=== PATIENT | female | born 1945 | race Caucasian/White ===

== ENCOUNTER 2017-04-04 16:55 | Emergency (ER) | payer OTHER ==
[2017-04-04 17:00] VITALS: RESP 16
--- NOTE | 2017-04-04 17:12 | CPEKG ---
Heart Rate: 70 RR Interval: 857 P-R Interval: 188 QRSD Interval: 106 QT Interval: 396 QTC Interval: 428 P Kunia: 62 QRS Kunia: -49 T Wave Kunia: 69 EKG Severity - ABNORMAL ECG - EKG Impression: SINUS RHYTHM EKG Impression: INCOMPLETE RBBB AND LAFB EKG Impression: LEFT VENTRICULAR HYPERTROPHY EKG Impression: ANTERIOR Q WAVES, POSSIBLY DUE TO LVH Electronically Signed By: Ese Webb 04-Apr-2017 20:20:58
--- NOTE | 2017-04-04 17:14 | EDPHY ---
H & P Time Seen by Provider: 04/04/17 17:12 HPI/ROS: CHIEF COMPLAINT: Abnormal EKG. HISTORY OF PRESENT ILLNESS: The patient is a 71-year-old female sent here by her PCP for an abnormal EKG today. The patient had a strange sensation in her left chest yesterday. She describes a feeling of "a hose running through her chest". During this time she feels the need to take deep breaths. She has experienced similar episodes of this in the past and states it lasts for less than a minute. She has been evaluated for this in the past and worn a monitor, had multiple EKGs, and treadmill test. All cardiac tests were normal. The patient additionally noticed some mild right sided chest pain yesterday. The chest pain was mild and lasted less than 10 minutes. She continued doing her usual activities while she had the discomfort and then it resolved spontaneously. She denies shortness of breath. She notes increased swelling to her lower extremities and states she is on her feet a lot. Cardiac risk factors positive for hyperlipidemia. Nonsmoker; no family history ; no hypertension, diabetes. REVIEW OF SYSTEMS: A comprehensive 10 point review of systems is otherwise negative aside from elements mentioned in the history of present illness. Past Medical/Surgical History: . Social History: Hypothyroid Smoking Status: Never smoked Physical Exam: General Appearance: Alert, pleasant Eyes: Pupils equal and round, no conjunctival pallor or injection ENT, Mouth: Mucous membranes moist Neck: Normal inspection Respiratory: Lungs are clear to auscultation Cardiovascular: Regular rate and rhythm Gastrointestinal: Abdomen is soft and non-tender Neurological: A&O, nonfocal, normal gait Skin: Warm and dry, no rash Extremities: Nontender, no pedal edema Psychiatric: Mood and affect normal Constitutional: Initial Vital Signs Temperature (C) 36.5 C 04/04/17 16:57 Heart Rate 72 04/04/17 16:57 Respiratory Rate 16 04/04/17 16:57 Blood Pressure 154/64 H 04/04/17 16:57 O2 Sat (%) 96 04/04/17 16:57 O2 Delivery Mode Room Air Allergies/Adverse Reactions: doxycycline Allergy (Intermediate, Verified 08/03/13 18:59) Itching Sulfa (Sulfonamide Antibiotics) Allergy (Intermediate, Verified 08/03/13 18:59) Hives Home Medications: Medication Instructions Recorded Cholecalciferol (Vitamin D3) 50,000 unit PO 08/03/13 [D3-50] Cyanocobalamin (Vitamin B-12) 1,000 mcg PO 08/03/13 [B-12] Levothyroxine [Synthroid 100 mcg 100 mcg PO DAILY06 08/03/13 (RX)] Meloxicam [Mobic 15 mg] 0 mg PO HS 08/03/13 Multivitamin [Multi Vitamin Daily] 1 each PO 08/03/13 [place]-3 Fatty Acids/Fish Oil [Fish 1 each PO 08/03/13 Oil 1,000 mg Capsule] oxyCODONE/APAP 5/325 [Percocet 1 tab PO Q6 #10 tab 08/03/13 5/325] Medical Decision Making - Diagnostics EKG Interpretation: EKG interpreted by me reveals normal sinus rhythm, right bundle branch block, LVH. Imaging Results: Chest x-ray independently reviewed by me reveals no acute disease. Imaging: I viewed and interpreted images myself ED Course/Re-evaluation: The patient was sent here by her PCP for abnormal EKG today and chest pain yesterday. I reviewed the patient's EKG performed at the clinic today which shows normal sinus rhythm, rate 64, LVH. I think that the slight ST segment elevation in the anterior leads is related to LVH. I find no clinical indication of acute coronary syndrome. Also, given the lack of reciprocal changes, this is probably her baseline EKG. There are no old EKGs for comparison. EKG done in the ED shows normal sinus rhythm, RBBB, LVH. I spoke with the patient about possible high blood pressure. She states that her blood pressure is usually slightly high when she is in her physician's office, though the elevated blood pressures often attributed to having run up the stairs to get to her appointment. I suspect that she has underlying hypertension and may need antihypertensive medication. The patient was instructed to take and record her blood pressure twice daily and take the results of these readings to her primary care physician. Chest x-ray is normal. Labs are unremarkable. The patient remained asymptomatic throughout her emergency department stay. pvc monitor revealed normal sinus rhythm throughout. I suspect that the whooshing feeling that she is feeling in her chest is related to either PVCs or PACs. The very brief discomfort does not sound ischemic in nature. In addition I do not suspect acute pulmonary embolism in this patient and I feel that I can exclude this diagnosis based on normal vital signs, normal oxygen saturation and no risk factors for thromboembolic disease. Plan to discharge patient home. Return precautions given. Differential Diagnosis: Differential diagnosis includes though it is not limited to pneumonia, pneumothorax, pulmonary embolism, aortic dissection, pericarditis, acute coronary syndrome. - Data Points Laboratory Results: Laboratory Results 04/04/17 17:50 04/04/17 17:50 Departure - Departure Disposition: Home, Routine, Self-Care Clinical Impression: Chest pain Condition: Good Instructions: Chest Pain (ED) Additional Instructions: Please followup with your heart surgeon if you continue to have symptoms. Referrals: Shoshana Garcia MD [Primary Care Provider] - As per Instructions [facility] [Provider Group] - As per Instructions Report Scribed for: Ese Webb Report Scribed by: Courtney Chavez Date of Report: 04/04/17 Time of Report: 17:12 Physician Review and Approval Statement: 04/04/17 17:12 Portions of this note were transcribed by a medical clinic manager. I personally performed the history, physical exam, and medical decision-making; and confirmed the accuracy of the information in the transcribed note.
[2017-04-04 18:01] LABS: % IMMATURE GRANULYOCYTES 0.2 % (0.0-1.1); ABSOLUTE IMMATURE GRANULOCYTES 0.01 10^3/uL (0.00-0.10); ADD DIFF? NO; ADD MORPH? NO; ADD SCAN? NO; ATYPICAL LYMPHOCYTE FLAG 0 (0-99); FRAGMENT RBC FLAG 0 (0-99); HEMATOCRIT 39.7 % (38.0-47.0); HEMOGLOBIN 13.7 g/dL (12.6-16.3); LEFT SHIFT FLG 0 (0-99); LIPEMIA HEMOLYSIS FLAG 90 (0-99); MEAN CELL HEMOGLOBIN 30.1 pg (27.9-34.1); MEAN CELL HEMOGLOBIN CONCENTR. 34.5 g/dL (32.4-36.7); MEAN CELL VOLUME 87.3 fL (81.5-99.8); MEAN PLATELET VOLUME 9.2 fL (8.7-11.7); PLATELET CLUMPS FLAG 0 (0-99); PLATELET COUNT 253 10^3/uL (150-400); RED BLOOD CELL COUNT 4.55 10^6/uL (4.18-5.33); RED CELL DISTRIBUTION WIDTH 12.6 % (11.5-15.2)
[2017-04-04 18:14] LABS: ANION GAP 7 mEq/L (8-16); CALCIUM 9.7 mg/dL (8.5-10.4); CARBON DIOXIDE 28 mEq/l (22-31); CHLORIDE 104 mEq/L (97-110); CREATININE 0.8 mg/dL (0.6-1.0); GLOMERULAR FILTRATION RATE > 60; GLUCOSE 89 mg/dL (70-100); SODIUM 139 mEq/L (134-144)
[2017-04-04 18:28] LABS: TROPONIN I < 0.012 ng/mL (0-0.034)
[2017-04-04 18:58] VITALS: BP 162/71; PULSE 75; TEMP 97.9; O2SAT 99
== END 2017-04-04 18:56 | disposition home or self-care (01) ==
DX: R07.9 Chest pain, unspecified (principal)

== ENCOUNTER → 2018-09-10 | Outpatient (CLI) | payer OTHER | LOC: BHFA 14:45 | PROVIDERS: ATTEND Physician Assistant Medical | DX: R94.31 Abnormal electrocardiogram [ECG] [EKG] (principal); I77.9 Disorder of arteries and arterioles, unspecified; I20.8 Other forms of angina pectoris ==

== ENCOUNTER 2018-09-12 12:08 | Inpatient (IN) | payer OTHER ==
[2018-09-12] MEDS ORDERED: FAMOTIDINE 20 MG TAB PO ONE (12:10)
[2018-09-12] MEDS ORDERED: DIAZEPAM 5 MG TAB PO ONE (12:10)
[2018-09-12] MEDS ORDERED: ASPIRIN EC 325 MG TAB PO ONE (12:10)
[2018-09-12] MEDS ORDERED: diphenhydrAMINE 25 MG CAP PO ONE (12:10)
[2018-09-12] MEDS ORDERED: NS 1,000 ML IV ONE (12:10)
[2018-09-12] MEDS ORDERED: fentaNYL 100 MCG/2 ML INJ ONE (12:37)
[2018-09-12] MEDS ORDERED: LIDOCAINE 1% 300 MG/30 ML SDV ONE (12:37)
[2018-09-12] MEDS ORDERED: MIDAZOLAM 2 MG/2 ML VIAL ONE (12:37)
[2018-09-12] MEDS ORDERED: IOPAMIDOL (ISOVUE-370) 150 ML BTL IV ONE (12:40)
[2018-09-12 13:06] LABS: PLATELET COUNT 262 10^3/uL (150-400)
[2018-09-12 13:15] LABS: INR 1.02 (0.83-1.16); PROTIME(PATIENT) 13.6 SEC (12.0-15.0)
--- NOTE | 2018-09-12 13:57 | ECHO ---
[email or web address] [address] [address] Main: [phone] Fax: Transthoracic Echocardiogram Name: ANIKET CRUZ MR#: [id number] Study Date: 09/12/2018 Study Time: 12:58 PM Date of : 1945 Age: 73 year(s) Height: 162.6 cm (64 in.) Weight: 67.59 kg (149 lb.) BSA: 1.73 m2 Gender: Female Examination: Echo Indication: cath Image Quality: Adequate Contrast: Requested by: Diego Gomez BP: 161 mmHg/72 mmHg Heart Rate: Rhythm: Indication: cath Procedure Staff Advisory Services Associate: Abigail Montesinos [facility] Reading Physician: Diego Gomez MD Requesting Provider: Conclusions: Normal size left ventricle. Borderline concentric LV hypertrophy. Normal global systolic LV function. EF is 68 %. No regional wall motion abnormality. Diastolic function is indeterminate. Normal size right ventricle. The left atrium is mildly dilated. Mild mitral valve leaflet calcification is present. Mild mitral valve regurgitation is present. The aortic valve is tri-leaflet. There is no significant aortic valve regurgitation. The tricuspid valve is normal in appearance and function. Mild tricuspid regurgitation is present. The pulmonary artery pressure is normal. Mild pulmonic valve regurgitation is noted. Normal size ascending aorta measuring 3.3 cm. Trivial pericardial effusion. Measurements: Chambers Valvular Assessment AV/MV Valvular Assessment TV/PV Normal Normal Normal Name Value Range Name Value Range Name Value Range Ao Sara (2D): 2.7 cm (1.4 cm-2.6 AV Vmax: 1.19 m/s (1 m/s-1.7 TR Vmax: 2.19 mm/s ( - ) cm) m/s) TR PGmax: 19 mmHg ( - ) IVSd (2D): 1.1 cm (0.6 cm-1.1 AV maxP mmHg ( - ) syst. PAP: 24 mmHg ( - ) cm) AV meanP mmHg ( - ) PV Vmax: 0.81 m/s (0.6 m/s-0.9 LVDd (2D): 4.7 cm (3.9 cm-5.3 MARC (VTI): 2.3 cm ( - ) m/s) cm) MV E Vmax: 0.57 m/s ( - ) PV PGmax: 3 mmHg ( - ) Patient: ANIKET CRUZ Study Date: 09/12/2018 Page 1 of 2 12:58 PM LVDs (2D): 3.0 cm (2.1 cm-4 MV A Vmax: 0.78 m/s ( - ) cm) MV E/A: 0.73 ( - ) LVPWd (2D): 1.1 cm ( - ) MV PHT: 0.096 s ( - ) LVOTd 2.0 cm 2.0 cm mm MVA (PHT): 2.3 s ( - ) LVEF (BP): 68 % (>=55 %) RVDd(2D): 2.8 cm (1.9 cm-3.8 cmmm) Continued Measurements: Chambers Valvular Assessment AV/MV Valvular Assessment TV/PV Name Value Name Value Name Value LADs: 3.2 cm MV DecTime: 299 m/s CVP (est.): 5 mmHg LADs Lon.3 cm MV E' Septal: 0.06 m/s LA Area: 20.2 cm2 MV E/E' Septal: 9.60 LA Volume: 64 ml MV E/E' Lateral: 7.80 LA Volume Index: 37.0 ml/m2 RA Area: 14.1 cm2 Additional Vessels Name Value Ao Ascendin.3 cm Inferior Vena Cava: 1.6 cm Findings: Left Ventricle: Normal size left ventricle. Borderline concentric LV hypertrophy. Normal global systolic LV function. EF is 68 %. No regional wall motion abnormality. Diastolic function is indeterminate. Right Ventricle: Normal size right ventricle. Normal RV function. Left Atrium: The left atrium is mildly dilated. Right Atrium: The right atrium is normal in size. Mitral Valve: The mitral valve is normal in appearance and function. Mild mitral valve leaflet calcification is present. Mild mitral valve regurgitation is present. No mitral stenosis is present. Aortic Valve: The aortic valve is tri-leaflet. There is no significant aortic valve regurgitation. No aortic valve stenosis is present. Tricuspid Valve: The tricuspid valve is normal in appearance and function. Mild tricuspid regurgitation is present. The pulmonary artery pressure is normal. Right ventricular systolic pressure measures 24mmHg. Pulmonic Valve: The pulmonic valve is normal in appearance and function. Mild pulmonic valve regurgitation is noted. Aorta: The aorta is normal. Normal size aortic root measuring 2.7 cm. Normal size ascending aorta measuring 3.3 cm. IVC: The IVC is normal sized. Pericardium: Trivial pericardial effusion. There is a pleural effusion present. (No Signature Object) Patient: ANIKET CRUZ Study Date: 09/12/2018 Page 2 of 2 12:58 PM [id number]
--- NOTE | 2018-09-12 13:57 | PDHPUP ---
History & Physical Update H&P update statement: This history and physical update is based on an assessment of the patient which was completed after admission or registration (within 24 hours), but prior to the surgery/procedure. H&P update: H&P reviewed & patient examined, no change in patient's condition since H&P completed
--- NOTE | 2018-09-12 13:58 | PDPROPOC ---
Sedation Plan of Care Sedation Plan of Care: vital signs stable, mental status noted, patient educated of risks, benefits, alternatives, patient can tolerate sedation ASA Classification: ASA 3 Planned drugs: fentanyl, midazolam Mallampati Score: Class 1 Mallampati Reference Image: Patient passed 3-3-2 rule?: Yes
--- NOTE | 2018-09-12 14:32 | PDDXCAT ---
Diagnostic Cath Note - . Date: 09/12/18 Road Monkey: Jason Indication: Class III or IV angina, which improves to class I/II w medical therapy - Procedure Access: right groin Procedure: left heart catheterization, coronary angiography, left ventriculogram - Materials Left Heart Cath size: 6F Left Heart Cath materials: standard multipack (JL4, JR4, pigtail) - Findings-Left Heart Catheterization LM: Large vessel with trifurcation into the LAD, ramus, and LCX. At the distal portion of the LM, there is a 70% stenosis appreciated. LAD: In the proximal portion of the LAD, there is a critical lesion (90%). Remainder of the LAD is diffusely diseased and smallish. There is a small diagonal to the mid portion of the LAD LCX: Medium diameter vessel with what appears to be a napkin ring lesion at the take off for the OM1 (principal). RCA: Large, dominant vessel supplying to the PDA and RAMAN vessels. Minor disease is noted in the mid portion of the vessel Ramus: Large diameter vessel (larger than the LAD) with moderate tortuosity to the mid and distal portion of the vessel EDP: 20 mm Hg LVEF: 65-70% Wall motion: normal Complications: none Estimated blood loss: <50ml Closure method: Angioseal Assessment: Patient is a 73 y/o female with history of chest pains and possible CVA (work up ongoing) with notable distal left main disease as well as critical lesion to the proximal LAD. Large ramus. Normal LVEF. Plan: CT surgery to consult with the patient tonight. Discussion about surgical intervention given the location and severity of the lesion. Intervention: none
[2018-09-12] MEDS ORDERED: OXYCODONE/APAP 5/325 TAB PO PRN (15:21)
[2018-09-12] MEDS ORDERED: ONDANSETRON 4 MG/2 ML VIAL IVP PRN (15:21)
[2018-09-12] MEDS ORDERED: ATROPINE SULFATE 1 MG/10 ML SYR IVP PRN (15:21)
[2018-09-12] MEDS ORDERED: NITROGLYCERIN 0.4 MG BTL SL PRN (15:21)
[2018-09-12] MEDS ORDERED: NS 1,000 ML IV SCH (16:30)
[2018-09-12] MEDS ORDERED: CHLORHEXIDINE GLUC HIBICLENS 118 ML BTL TP SCH (21:00)
--- NOTE | 2018-09-12 21:11 | GCON ---
DATE OF CONSULTATION: 09/12/2018 The patient is seen at the request of Dr. Gomez with the patient's permission. IMPRESSION: 1. Severe left main and 2-vessel disease with preserved left ventricular function. 2. Obesity. 3. Hyperlipidemia. RECOMMENDATIONS: This patient should undergo coronary artery bypass grafting on this admission for a less than 1% mortality due to unstable angina with left main and 2-vessel disease. She has preserve d LV function. PREVIOUS MEDICAL HISTORY: As stated above, also includes hypothyroidism and pernicious anemia. SOCIAL HISTORY: She never drank and never smoked. She is accompanied by her daughter and lives inde pendently. FAMILY HISTORY: Noncontributory. REVIEW OF SYSTEMS: At the present time, the patient is somewhat sedated. Review of systems was miguel a ramos from the admitting history and physical. MEDICATIONS ON ADMISSION: Aspirin, vitamin B12, fish oil, levothyroxine and losartan. ALLERGIES: Doxycycline, sulfa, tetracycline. PHYSICAL EXAMINATION: GENERAL: This is a pleasant elderly female lying supine in bed, awake, modera tely overweight. HEENT: Normocephalic. PERRLA. EOMI. NECK: Without bruits. HEART: Rate is reg ular, without murmur. LUNGS: Clear. ABDOMEN: Soft, nontender. Bowel sounds are active. RECTAL A ND GENITAL: Deferred. NEUROLOGICAL: Grossly intact. Motor and sensory deficits: None elicited. VITAL SIGNS: Weight 68 kg, blood pressure 136/82. LEGS: Without edema or varicosities. /[id number]/MODL
[2018-09-12] MEDS: METOPROLOL TARTRATE 25 MG TAB PO SCH (21:55)
[2018-09-12] MEDS: MUPIROCIN 2% 22 GM OINT NS SCH (21:55)
[2018-09-12] MEDS: SENNOSIDES/DOCUSATE SODIUM TAB PO SCH (21:55)
[2018-09-13] MEDS ORDERED: MANNITOL 25% 12.5 GM/50 ML VIAL IVP ONE (06:00)
[2018-09-13] MEDS ORDERED: CARDIOPLEGIC SOLUTION 1,052.8 ML PF ONE (06:00)
[2018-09-13] MEDS ORDERED: niCARdipine/NACL 200 ML IV ONE (06:00)
[2018-09-13] MEDS ORDERED: AMINOCAPROIC ACID 5 GM/20 ML VIAL IV ONE (06:00)
[2018-09-13] MEDS ORDERED: NOREPINEPHRINE BITARTRATE 16 MG in NS 250 ML IV ONE (06:00)
[2018-09-13] MEDS ORDERED: SODIUM BICARBONATE 20 MEQ, LIDOCAINE 1% 10 ML in NORMOSOL-R 1,000 ML MISC ONE (06:00)
[2018-09-13] MEDS ORDERED: INSULIN REGULAR HUMAN 100 UNIT in NS 100 ML IV ONE (06:00)
[2018-09-13] MEDS ORDERED: PHENYLEPHRINE HCL 50 MG in NS 250 ML IV ONE (06:00)
[2018-09-13] MEDS ORDERED: VERAPAMIL 5 MG, NITROGLYCERIN 2.5 MG, HEPARIN 500 UNIT, SODIUM BICARBONATE 0.2 MEQ in L... MISC ONE (06:00)
[2018-09-13] MEDS ORDERED: CITRATE DEXTROSE SOLN 500 ML BAG MISC ONE (06:00)
[2018-09-13] MEDS ORDERED: ceFAZolin 2 GM/DEXTROSE 100 ML IV ONE (06:00)
[2018-09-13] MEDS: LEVOTHYROXINE 125 MCG TAB PO SCH (06:00)
[2018-09-13] MEDS ORDERED: ALBUMIN 5% 250 ML BOTTLE IV ONE ×2 (07:17→10:28)
[2018-09-13] MEDS ORDERED: PROTAMINE SULFATE 50 MG/5 ML VIAL IVP ONE (07:17)
[2018-09-13] MEDS ORDERED: CALCIUM CHLORIDE 1 GM/10 ML INJ ONE (07:18)
[2018-09-13] MEDS ORDERED: NA BICARBONATE 50 MEQ/50 ML VIAL ONE (07:18)
[2018-09-13] MEDS ORDERED: LIDOCAINE 2% 100 MG/5 ML SYR ONE (07:18)
[2018-09-13] MEDS ORDERED: MILRINONE/DEXTROSE/100 ML BAG IV ONE (07:18)
[2018-09-13] MEDS ORDERED: CITRATE DEXTROSE SOLN 500 ML BAG ONE (07:20)
[2018-09-13] MEDS ORDERED: DOPamine/DEXTROSE 400 MG/250 ML BAG IV ONE (07:20)
[2018-09-13] MEDS ORDERED: niCARdipine/NACL/200 ML BAG IV ONE (07:20)
[2018-09-13] MEDS ORDERED: ADENOSINE 6 MG/2 ML VIAL ONE (07:20)
[2018-09-13] MEDS ORDERED: AMIODARONE HCL 150 MG/3 ML VIAL ONE (07:20)
[2018-09-13] MEDS ORDERED: HEPARIN 10,000 UNIT/10 ML MDV (1,000 UNIT/ML) ONE (07:20)
[2018-09-13] MEDS ORDERED: MAGNESIUM SULFATE 1 GM/2 ML VIAL ONE ×2 (07:21→07:41)
[2018-09-13] MEDS ORDERED: NITROGLYCERIN/D5W 50 MG/250 ML BOTTLE IV ONE (07:21)
[2018-09-13] MEDS ORDERED: methylPREDNISolone SOD SUCC 1 GM/8 ML VIAL ONE (07:21)
[2018-09-13] MEDS ORDERED: ceFAZolin 1 GM VIAL ONE ×3 (07:21→11:19)
[2018-09-13] MEDS ORDERED: PAPAVERINE HCL 60 MG/2 ML SDV ONE ×2 (07:22→07:33)
[2018-09-13] MEDS ORDERED: MINERAL OIL 10 ML VIAL ONE (07:22)
[2018-09-13] MEDS ORDERED: VERAPAMIL 5 MG/2 ML VIAL ONE (07:22)
[2018-09-13] MEDS ORDERED: HEPARIN 1000 UNIT/1 ML MDV ONE (07:33)
[2018-09-13] MEDS ORDERED: PROPOFOL/EMULSION 500 MG/50 ML BOTTLE IV ONE (07:44)
[2018-09-13] MEDS ORDERED: fentaNYL 250 MCG/5 ML INJ ONE (07:45)
[2018-09-13] MEDS ORDERED: MIDAZOLAM 2 MG/2 ML VIAL ONE (07:48)
--- NOTE | 2018-09-13 07:50 | PDANEPAE ---
ANE History of Present Illness here for cabg ANE Past Medical History - Cardiovascular History Hx Hypertension: No Hx Arrhythmias: No Hx Chest Pain: Yes Hx Coronary Artery / Peripheral Vascular Disease: Yes Hx CHF / Valvular Disease: No Hx Palpitations: No - Pulmonary History Hx COPD: No Hx Asthma/Reactive Airway Disease: No Hx Recent Upper Respiratory Infection: No Hx Oxygen in Use at Home: No Hx Sleep Apnea: No Sleep Apnea Screening Result - Last Documented: Positive - Endocrine History Hx Diabetes: No - Renal History Hx Renal Disorders: No - Liver History Hx Hepatic Disorders: No - Neurological & Psychiatric Hx Hx Neurological and Psychiatric Disorders: No - Chronic Pain History Chronic Pain: No ANE Review of Systems Review of systems is: negative Review of Systems: ANE Patient History - Allergies Allergies/Adverse Reactions: doxycycline Allergy (Intermediate, Verified 08/03/13 18:59) Itching Sulfa (Sulfonamide Antibiotics) Allergy (Intermediate, Verified 08/03/13 18:59) Hives sulfabenzamide Allergy (Verified 09/10/18 17:09) sulfacetamide Allergy (Verified 09/10/18 17:09) sulfathiazole Allergy (Verified 09/10/18 17:09) Tetracyclines Allergy (Verified 09/10/18 17:09) - Home Medications Home medications: home medication list seen and reviewed Home Medications: Aspirin [Aspirin 81mg (*)] 81 mg PO DAILY 09/11/18 [Last Taken 09/11/18] Cyanocobalamin [Vitamin B12 1000MCG/ML (*)] 1,000 mcg IM Q30D 09/11/18 [Last Taken 09/11/18] Herbals/Supplements -Info Only 1 ea PO DAILY 09/11/18 [Last Taken 09/12/18] Levothyroxine [Synthroid 125 mcg (*)] 125 mcg PO DAILY06 09/11/18 [Last Taken ] Losartan Potassium [Cozaar 50 mg (*)] 50 mg PO DAILY 09/11/18 [Last Taken ] Metoprolol Tartrate [Lopressor 25 mg (*)] 12.5 mg PO BID 09/11/18 [Last Taken ] Multivitamins [Multivitamin (*)] 1 each PO DAILY 09/11/18 [Last Taken 09/11/18] Nitroglycerin [Nitrostat 0.4 mg (*)] 0.4 mg SL Q5M PRN 09/11/18 [Last Taken Unknown] [place]-3 Fatty Acids [Fish Oil 1000 mg (*)] 1,000 mg PO DAILY 09/11/18 [Last Taken 09/11/18] - NPO status NPO Status: no food or drink >8 hours NPO Since - Liquids (Date): 09/12/18 NPO Since - Liquids (Time): 23:00 NPO Since - Solids (Date): 09/12/18 NPO Since - Solids (Time): 23:00 - Smoking Hx Smoking Status: Never smoked ANE Labs/Vital Signs - Labs Result Diagrams: 09/12/18 12:45 09/13/18 03:17 - Vital Signs Vital Signs: reviewed preoperatively; see RN documention for details Blood Pressure: 135/65 Heart Rate: 50 Respiratory Rate: 16 O2 Sat (%): 94 Height: 165 cm Weight: 66.088 kg ANE Physical Exam - Airway Neck exam: FROM Mallampati Score: Class 1 Mouth exam: normal dental/mouth exam - Pulmonary Pulmonary: no respiratory distress - Cardiovascular Cardiovascular: regular rate and rhythym - ASA Status ASA Status: IV ANE Anesthesia Plan Anesthesia Plan: general endotracheal anesthesia Lines/Monitors: arterial line, central line
[2018-09-13] MEDS ORDERED: DEXAMETHASONE 4 MG/ML VIAL ONE ×2 (08:43)
[2018-09-13] MEDS ORDERED: KETAMINE 500 MG/10 ML VIAL ONE (08:44)
[2018-09-13] MEDS ORDERED: LOSARTAN POTASSIUM 50 MG TAB PO SCH (09:00)
--- NOTE | 2018-09-13 09:08 | PDMN ---
Medical Necessity Medical necessity: [facility] IP only surgery; CABG S-390 IP
[2018-09-13] MEDS ORDERED: HYDROmorphONE/DILAUDID 2 MG/ML INJ ONE (10:55)
[2018-09-13] MEDS: METOPROLOL TARTRATE 25 MG TAB PO SCH (10:56)
[2018-09-13] MEDS: MUPIROCIN 2% 22 GM OINT NS SCH ×2 (10:56→21:56)
[2018-09-13] MEDS: SENNOSIDES/DOCUSATE SODIUM TAB PO SCH (10:57)
[2018-09-13] MEDS ORDERED: POLYETHYLENE GLYCOL 3350 17 GM PKT PO PRN (11:43)
[2018-09-13] MEDS ORDERED: ACETAMINOPHEN 650 MG SUPP PR PRN (11:43)
[2018-09-13] MEDS ORDERED: MAGNESIUM HYDROXIDE 30 ML UDCUP PO PRN (11:43)
[2018-09-13] MEDS ORDERED: CEPACOL LOZENGE PO PRN (11:43)
[2018-09-13] MEDS ORDERED: PANTOPRAZOLE SODIUM 40 MG VIAL IVP ONE (11:43)
[2018-09-13] MEDS ORDERED: D50W 25 GM/50 ML SYR IVP PRN (11:43)
[2018-09-13] MEDS ORDERED: MEPERIDINE 25 MG/0.5 ML AMP IVP PRN (11:43)
[2018-09-13] MEDS ORDERED: LACTULOSE 20 GM/30 ML UDCUP PO PRN (11:43)
[2018-09-13] MEDS ORDERED: fentaNYL 100 MCG/2 ML INJ IVP PRN (11:43)
[2018-09-13] MEDS ORDERED: ONDANSETRON DISINTEGRATING 4 MG TAB PO PRN (11:43)
[2018-09-13] MEDS ORDERED: niCARdipine/NACL 200 ML IV PRN (11:43)
[2018-09-13] MEDS ORDERED: SODIUM CL NASAL 45 ML BTL EACHNARE PRN (11:43)
[2018-09-13] MEDS ORDERED: BISACODYL 10 MG SUPP PR PRN (11:43)
[2018-09-13] MEDS ORDERED: METOCLOPRAMIDE 10 MG/2 ML VIAL IVP PRN (11:43)
[2018-09-13] MEDS ORDERED: NS 1,000 ML IV SCH (11:45)
[2018-09-13] MEDS ORDERED: traMADol 50 MG TAB PO PRN (11:55)
[2018-09-13] MEDS ORDERED: INSULIN REGULAR HUMAN 100 UNIT in NS 100 ML IV SCH (12:00)
--- NOTE | 2018-09-13 12:27 | POSTANESTH ---
Post Anesthetic Evaluation Cardiovascular Status: Normal, Stable Respiratory Status: Normal, Stable Level of Consciousness/Mental Status: Unconscious (intubated) Pain Control: Adequate, Prn Tx Ordered Nausea/Vomiting Control: Adequate, Prn Tx Ordered Complications Possibly Related to Anesthesia: None Noted
[2018-09-13] MEDS: ALBUMIN 5% 250 ML IV PRN ×2 (12:30→14:30)
[2018-09-13] MEDS: ceFAZolin 2 GM/DEXTROSE 100 ML IV SCH ×3 (12:51→22:00)
--- NOTE | 2018-09-13 13:31 | ASMTCMCOM ---
CM Note CM Note Notes: Pt admitted for CABG due to CAD. Per chart review, pt lives independently and has a daughter, Ivette Concepcion ([phone]) who has been updated as of this morning. Exact DC needs TBD as it appears per chart review that pt is still intubated but stable. PT/OT/Cardiac rehab evals and pulmonology consult ordered. CM to follow. Date Signed: 09/13/2018 01:30 PM Electronically Signed By:Janie Bell RN
[2018-09-13] MEDS: POTASSIUM Cl (KCl) 50 ML IV PRN ×3 (14:25→17:27)
[2018-09-13] MEDS: ONDANSETRON 4 MG/2 ML VIAL IVP PRN (19:08)
[2018-09-14 03:59] LABS: PLATELET COUNT 146 10^3/uL (150-400)
[2018-09-14] MEDS: HYDROCODONE/APAP 5/325 TAB PO PRN ×3 (04:45→19:29)
[2018-09-14] MEDS: LEVOTHYROXINE 125 MCG TAB PO SCH (06:14)
[2018-09-14] MEDS: ceFAZolin 2 GM/DEXTROSE 100 ML IV SCH ×3 (06:14→23:02)
--- NOTE | 2018-09-14 07:25 | SOAPPROG ---
SOAP Progress Note Assessment/Plan: Assessment: POD#1 Urgent CABG x 2 (ROUSSEAU-LAD, SV-RI), EVH left thigh Sx severe CAD with high grade stenosis of distal LM - Preserved ventricular and valvular fx. Revascularized with CABG. Stable early postop course. Extubated without incident. No pressor support. No dysrhythmias. No sig fluid overload. Secondary prevention w baby ASA, BB and statin when appropriate. Acute expected blood loss anemia - Stable. No transfusions required. VTE prophylaxis with SCDs. Moderate carotid artery disease - KYARA > LICA. No apparent postop deficits. Secondary prevention as per CAD. Surveillance per cards. Plan: Routine POD#1 orders re. lines, wires, orals and mobility. Start metoprolol 12.5 mg BID w conservative hold parameters. Keep CTs one more day. Tx to PCU. 09/14/18 07:22 Subjective: Doing ok. A little wobbily getting OOB, but not dizzy. No nausea. Pain adequately controlled. Looking forward to smoothie for breakfast. Objective: Vital Signs Temp Pulse Resp BP Pulse Ox 36.8 C 68 23 H 108/48 L 94 09/14/18 05:00 09/14/18 07:00 09/14/18 07:00 09/14/18 07:00 09/14/18 07:00 Laboratory Results 09/14/18 03:40 09/14/18 03:40 09/13/18 09/14/18 09/15/18 06:59 05:59 05:59 Intake Total Output Total Balance PT 13.6 SEC (12.0-15.0) 09/12/18 12:45 INR 1.02 (0.83-1.16) 09/12/18 12:45 HR and rhythm stable. Intermittent nicardipine for elev SBPs. Borderline suppl O2 req. Adequate fluid balance. CXR -> No PTX, no pulm vasc congestion, no undrained effusions. Dissipating CTOP. Labs as expected. Physical Exam - Physical Exam General Appearance: alert, no apparent distress Respiratory: decreased breath sounds (bases), other (CTs x 3 y-d to pleurovac, serosang drainage, +tidal, no air leak) Cardiac/Chest: regular rate, rhythm, other (Sternotomy CDI. Vwires intact.) Abdomen: normal bowel sounds, non-tender, soft Skin: warm/dry Extremities: swelling (trace), other (LLE venotomy CDI) ICD10 Worksheet Patient Problems: Problems Problem Status Onset Acute blood loss anemia Acute CAD (coronary artery disease), [place] coronary artery Acute Carotid artery disease Acute S/P CABG x 2 Acute ~09/13/18
[2018-09-14] MEDS: MUPIROCIN 2% 22 GM OINT NS SCH ×2 (08:39→23:04)
[2018-09-14] MEDS: ASPIRIN 81 MG CHEWABLE TAB PO SCH (08:40)
[2018-09-14] MEDS: PANTOPRAZOLE SODIUM 40 MG TAB PO SCH (08:40)
[2018-09-14] MEDS: METOPROLOL TARTRATE 25 MG TAB PO SCH ×2 (09:10→21:30)
[2018-09-14] MEDS ORDERED: ALBUMIN 5% 500 ML BOTTLE IV ONE (09:28)
[2018-09-14] MEDS ORDERED: ALBUMIN 5% 500 ML IV ONE (09:29)
[2018-09-14] MEDS: ONDANSETRON 4 MG/2 ML VIAL IVP PRN (13:18)
--- NOTE | 2018-09-14 14:55 | CPEKG ---
Test Reason : OPEN Blood Pressure : / mmHG Vent. Rate : 064 BPM Atrial Rate : 064 BPM P-R Int : 176 ms QRS Dur : 106 ms QT Int : 419 ms P-R-T Axes : 074 -66 073 degrees QTc Int : 433 ms Sinus rhythm Left anterior fascicular block Probable left ventricular hypertrophy Anterior Q waves, possibly due to LVH Confirmed by Isaac Oliveira ([id number]) on 09/14/2018 2:54:32 PM Referred By: Confirmed By:Isaac Oliveira
--- NOTE | 2018-09-14 14:58 | CPEKG ---
Test Reason : OPEN Blood Pressure : / mmHG Vent. Rate : 060 BPM Atrial Rate : 061 BPM P-R Int : 235 ms QRS Dur : 113 ms QT Int : 462 ms P-R-T Axes : 097 -71 008 degrees QTc Int : 462 ms Sinus rhythm Ventricular premature complex Prolonged CT interval Incomplete RBBB and LAFB LVH with secondary repolarization abnormality Anterior Q waves, possibly due to LVH Confirmed by Isaac Oliveira ([id number]) on 09/14/2018 2:57:24 PM Referred By: Confirmed By:Isaac Oliveira
[2018-09-14] MEDS: ACETAMINOPHEN 325 MG TAB PO PRN (15:05)
[2018-09-14] MEDS: SENNOSIDES/DOCUSATE SODIUM TAB PO SCH (21:29)
--- NOTE | 2018-09-15 02:15 | GOP ---
DATE OF OPERATION: 09/13/2018 SURGEON: Elkin Vitale MD LEAN LEADER: Jordana Bautista PA-C PREOPERATIVE DIAGNOSIS: Left main coronary artery disease. POSTOPERATIVE DIAGNOSIS: Left main coronary artery disease. PROCEDURE PERFORMED: 1. Urgent double artery bypass grafting with left internal mammary artery to the left anterior desce nding and saphenous vein graft from the aorta to ramus. 2. Endoscopic vein harvest from the left thigh. FINDINGS: The pericardial space was free. The aorta was soft. The vein was a good quality, 4 mm ve ssel. The mammary was good quality, 1.5 mm vessel. The distal targets showed calcification of the p roximal LAD. The vessel was soft and of good quality just distal to the 2nd diagonal. The 1st sylvain nal or ramus branch of the circumflex was large and soft. The 2 smaller distal marginal branches as they came out of the AV groove were small and not suitable for grafting. INDICATIONS: The patient is a 73-year-old woman who was admitted with unstable angina. She underwen t cardiac catheterization and was found to have distal left main, as well as a critical LAD stenosis. Right coronary is normal. She was recommended to undergo surgical revascularization. DESCRIPTION OF PROCEDURE: The patient was taken to the operating room and placed on the operating ta ble in the supine position. After the induction of general anesthesia and single lumen endotracheal tube intubation, the patient was prepped and draped sterilely. Standard median sternotomy was perfor med and the left internal mammary artery was taken down with electrocautery and hemoclips while the s aphenous vein was harvested from the upper portion of the left leg using a minimally invasive endosco pic technique. The patient was next heparinized. The mammary was divided and found to have good lexa w. The patient was then cannulated with a Sarns 8.0 soft flow aortic cannula, as well as a dual-stag e venous right atrial cannula. Cardiopulmonary bypass was instituted. Next, a cross clamp was appli ed and the heart was arrested with 1 L of [place] solution. We inspected the heart, the findings ar e described above. The ramus branch was opened, it was a 2 mm vessel. It was anastomosed end-to-del e to a vein graft using running 7-0 Prolene. Next, the LAD was opened in its 3rd portion. It was an astomosed end-to-side to the left internal mammary artery using running 7-0 Prolene. This was allowe d to flow freely as it was tacked to the epicardium. The cross clamp was then removed and a partial occlusion clamp was placed. The vein graft was anastomosed end-to-side to the ascending aorta using running 6-0 Prolene. This was de-aired, then allowed to flow freely. Left, right, and mediastinal c hest tubes were placed, as well as 2 right ventricular pacing wires. Once off bypass, the protamine was administered and the patient was decannulated. All cannulation sites were doubly secured with Pr olene suture and after hemostasis had been achieved the heart was then covered with pericardium and f at and the chest was closed with #6 stainless steel wires. Subcutaneous tissue and skin were closed with running Vicryl suture. The patient tolerated the procedure well. /[id number]/MODL
[2018-09-15 04:45] LABS: PLATELET COUNT 155 10^3/uL (150-400)
[2018-09-15] MEDS: HYDROCODONE/APAP 5/325 TAB PO PRN (05:15)
[2018-09-15] MEDS: LEVOTHYROXINE 125 MCG TAB PO SCH (05:15)
--- NOTE | 2018-09-15 06:58 | SOAPPROG ---
SOAP Progress Note Assessment/Plan: Assessment: POD#2 Urgent CABG x 2 (ROUSSEAU-LAD, SV-RI), EVH left thigh Sx severe CAD with high grade stenosis of distal LM - Preserved ventricular and valvular fx. Revascularized with CABG. Stable early postop course. Extubated without incident. No pressor support. No dysrhythmias. No sig fluid overload. Secondary prevention w baby ASA, BB and statin. Acute expected blood loss anemia - Stable. No transfusions required. VTE prophylaxis with SCDs. Moderate carotid artery disease - KYARA > LICA. No apparent postop deficits. Secondary prevention as per CAD. Surveillance per cards. Plan: Vwire and chest tubes removed. Cont metoprolol 12.5 mg BID w conservative hold parameters. Inc activity as tolerated. Dispo - Home without services in 1-2 days. 09/15/18 06:57 Subjective: Tube pain limiting mobility. Objective: Vital Signs Temp Pulse Resp BP Pulse Ox 37.0 C 67 16 118/57 L 93 09/15/18 05:10 09/15/18 05:10 09/15/18 05:10 09/15/18 05:10 09/15/18 05:10 Laboratory Results 09/15/18 04:25 09/15/18 04:25 09/14/18 09/15/18 09/16/18 05:59 05:59 05:59 Intake Total 1834 Output Total 1280 Balance 554 PT 13.6 SEC (12.0-15.0) 09/12/18 12:45 INR 1.02 (0.83-1.16) 09/12/18 12:45 HR and BP controlled Off suppl O2 Adequate I/Os No sig CTOP Labs as expected Physical Exam - Physical Exam General Appearance: alert, no apparent distress Respiratory: lungs clear, other (CTs x 3 y-d to pleurovac, mostly serous drainage, no air leak. Tubes removed individually without incident.) Cardiac/Chest: regular rate, rhythm, other (Sternotomy CDI. Vwires removed without difficulty.) Abdomen: non-tender, soft Skin: warm/dry Extremities: other (no visible edema, LLE venotomy CDI) ICD10 Worksheet Patient Problems: Problems Problem Status Onset Acute blood loss anemia Acute CAD (coronary artery disease), [place] coronary artery Acute Carotid artery disease Acute S/P CABG x 2 Acute ~09/13/18
[2018-09-15] MEDS: SENNOSIDES/DOCUSATE SODIUM TAB PO SCH ×2 (10:00→20:38)
[2018-09-15] MEDS: METOPROLOL TARTRATE 25 MG TAB PO SCH ×2 (10:00→20:37)
[2018-09-15] MEDS: ASPIRIN 81 MG CHEWABLE TAB PO SCH (10:00)
[2018-09-15] MEDS: PANTOPRAZOLE SODIUM 40 MG TAB PO SCH (10:00)
[2018-09-15] MEDS: MUPIROCIN 2% 22 GM OINT NS SCH ×2 (10:06→20:38)
[2018-09-15] MEDS: ACETAMINOPHEN 325 MG TAB PO PRN ×2 (15:56→20:43)
[2018-09-16] MEDS: LEVOTHYROXINE 125 MCG TAB PO SCH (04:53)
[2018-09-16] MEDS: ACETAMINOPHEN 325 MG TAB PO PRN (04:53)
--- NOTE | 2018-09-16 07:12 | SOAPPROG ---
SOAP Progress Note Assessment/Plan: Assessment: POD#3 Urgent CABG x 2 ([facility]OUSSEAU-LAD, SV-RI), EVH left thigh Sx severe CAD with high grade stenosis of distal LM - Preserved ventricular and valvular fx. Revascularized with CABG. Stable early postop course. Extubated without incident. No pressor support. No dysrhythmias. No sig fluid overload. Secondary prevention w baby ASA, BB and statin. Acute expected blood loss anemia - Stable. No transfusions required. VTE prophylaxis with SCDs. Moderate carotid artery disease - KYARA > LICA. No apparent postop deficits. Secondary prevention as per CAD. Surveillance per cards. Plan: Cont metoprolol 12.5 mg BID. Start Lipitor 20 mg daily. Cont inc activity as tolerated. Dispo - Home without services later today or tomorrow. 09/16/18 07:11 Subjective: Doing well. Tolerating light activity with relative ease. Good appetite. +BM. Min incisional discomfort. Would just as soon go home. Objective: Vital Signs Temp Pulse Resp BP Pulse Ox 36.6 C 77 18 116/69 95 09/16/18 04:58 09/16/18 04:58 09/16/18 04:58 09/16/18 04:58 09/16/18 04:58 Laboratory Results 09/15/18 04:25 09/15/18 04:25 09/15/18 09/16/18 09/17/18 05:59 05:59 05:59 Intake Total 1834 800 Output Total 1280 2300 Balance 554 -1500 PT 13.6 SEC (12.0-15.0) 09/12/18 12:45 INR 1.02 (0.83-1.16) 09/12/18 12:45 HR and BP well controlled. Off O2. Excellent fluid balance. - Pending Discharge Pending Discharge Within 24 Hours: Yes Pending Discharge Date: 09/17/18 Pending Discharge Time: 11:00 Physical Exam - Physical Exam General Appearance: alert, no apparent distress Respiratory: lungs clear Cardiac/Chest: regular rate, rhythm, other (Sternum grossly stable. Sternotomy CDI) Abdomen: non-tender, soft Skin: warm/dry Extremities: other (no visible edema) ICD10 Worksheet Patient Problems: Problems Problem Status Onset Acute blood loss anemia Acute CAD (coronary artery disease), [place] coronary artery Acute Carotid artery disease Acute S/P CABG x 2 Acute ~09/13/18 chronic disease mgmt/transitional care Acute
[2018-09-16] MEDS ORDERED: ATORVASTATIN CALCIUM 20 MG TAB PO SCH (09:00)
[2018-09-16] MEDS ORDERED: SENNOSIDES/DOCUSATE SODIUM TAB PO PRN (09:00)
[2018-09-16] MEDS: ASPIRIN 81 MG CHEWABLE TAB PO SCH (10:33)
[2018-09-16] MEDS: METOPROLOL TARTRATE 25 MG TAB PO SCH (10:33)
[2018-09-16] MEDS: PANTOPRAZOLE SODIUM 40 MG TAB PO SCH (10:33)
[2018-09-16 11:41] VITALS: BP 105/52
--- NOTE | 2018-09-16 15:14 | PDIAF ---
- Diagnosis Diagnosis: Sx CAD s/p CABG Code Status: Full Code - Medication Management Additional Medication Instructions: Max daily dose tylenol 3,000 mg Discharge Medications: electronically signed and located in the Home Medication List. PIC Care - Routine: N/A - Orders Services needed: Registered Nurse (cardiorespiratory monitoring), Physical Therapy (at least once daily), Occupational Therapy (daily) Isolation Type: None Oxygen: prn SpO2 < 90% Diet Recommendation: cardiac -low fat low salt Diet Texture: Regular Texture Diet Weigh Patient: daily Nelson: Not applicable Wound Care Instructions: Daily soap and water. Ok to leave all wounds open to air. Avoid ointments or underwater immersion until eschar off Activity/Weight Bearing Restrictions: sternal precautions x 4 weeks. avoid push pull activities. avoid lifting > 10 lbs with an outstretched arm Additional Instructions: Call [facility] cardiac rehab to enroll in phase 2 classes once released from [facility]. Sternal precautions x 4 weeks. Avoid lifting > 10lbs with an outstretched arm. Avoid push/pull activities. No driving for 2 weeks or until cleared by surgery. Cleanse wounds once daily with soap and water. Avoid underwater immersion (pool , hot tub, bath) until scabs off. Ok to leave all wounds open to air. Avoid creams or ointments until scabs off. Elevate low legs at rest. Avoid prolonged standing or dangling. Log daily vital signs: weight, resting heart rate over 1 minute, +/- blood pressure. Call [facility] for overnight weight gain > 2lbs, weekly gain > 5lbs or worsening leg swelling. Call [facility] for resting heart rate > 120 or < 60 OR for systolic blood pressure consistently < 90 or > 140. Please obtain a chest xray prior to surgical appointment. Use requisition form attached to appointment card. Chest x-rays don't require an appointment. Go to the Emergency Room entrance at the [facility] location. Sign in at the computer kiosk in the entryway. You will be given a number & may sit in the waiting area until called. You will be registered and directed to Imaging on the 1st floor. This process can take up to an hour. Please allow at least 30 min before your appt to get x-ray taken. Ok to use [id number]-cuy-zyuqwyb medications for iron supplementation, bowel function or pain. Consider Tylenol 500-650 mg with meals and before bed. Max daily dose of Tylenol 3000 mg. Each Barnett contains 325 mg of Tylenol. Avoid nonsteroidal anti-inflammatories (ie. Ibuprofen, advil, motrin, aleve) x 3 months for interference with beneficial effects of aspirin on graft flow. - Labs/Radiology Imaging Orders: chest xray prior to surgical appointment - Follow Up Care Current Providers and Referrals: Shoshana Garcia MD [Primary Care Provider] - Isaac Monaco DO [Doctor of Osteopathy] - 09/23/18 11:45 am Roseline Rowley PA [Physician Portfolio Manager] - follow up as scheduled (appt to be established during surgical visit)
--- NOTE | 2018-09-16 15:22 | ASMTLACE ---
LACE Length of stay for Answers: 4-6 days current admission Acuity / Level of Answers: Yes Care: Did the patient have an inpatient admission? Comorbidities - select Answers: Coronary Artery Disease all that apply Other Notes: hyperlipidemia, hypothy ruthy dism, obesity, pernicio us anemia, # of Emergency department Answers: 1-2 visits in the last 6 months Score: 11 Date Signed: 09/16/2018 03:21 PM Electronically Signed By:Jayne Rojas RN
--- NOTE | 2018-09-16 15:26 | ASDISCHSUM ---
Discharge Information Plan Status:SNF Medically Cleared to Leave:09/15/2018 Discharge Date:09/15/2018 CM D/C Disposition:[facility] Facility ADT D/C Disposition:[facility] Facility Projected Discharge Date:09/17/2018 11:00 AM Transportation at D/C:Wheelchair Van Discharge Delay Reason: Follow-Up Date:09/17/2018 11:00 AM Discharge Slot: Final Diagnosis: Placement Information Referral Type:*Fpc/SNF Referral ID:[id number] Provider Name:Maria Isabel quezada [place] Address 1:[address] [facility] Address 2: City:[place] Selection Factors: State:[place] Patient Contact Information Contact Name:LILLIANA Relationship:Daughter Address: Work Phone: City: [facility] Phone: [facility] Code: Email: Financial Information Financial Class:Medicare Primary Plan Desc:MEDICARE INPATIENT Primary Plan Number:[id number] Secondary Plan Desc:DIPIKA Secondary Plan Number:[id number] Assessment Information [facility] CM Progress Note CM Note CM Note Notes: Pt admitted for CABG due to CAD. Per chart review, pt lives independently and has a daughter, Ivette Concepcion ([phone]) who has been updated as of this morning. Exact DC needs TBD as it appears per chart review that pt is still intubated but stable. PT/OT/Cardiac rehab evals and pulmonology consult ordered. CM to follow. Date Signed: 09/13/2018 01:30 PM Electronically Signed By:Janie Bell RN LACE LACE Length of stay for Answers: 4-6 days current admission Acuity / Level of Answers: Yes Care: Did the patient have an inpatient admission? Comorbidities - select Answers: Coronary Artery Disease all that apply Other Notes: hyperlipidemia, hypothy ruthy dism, obesity, pernicio us anemia, # of Emergency department Answers: 1-2 visits in the last 6 months Score: 11 Date Signed: 09/16/2018 03:21 PM Electronically Signed By:Jayne Rojas RN Case Management Discharge Plan Note Case Management Discharge Discharge Order Complete? Answers: Yes Patient to Obtain Answers: Other Notes: [facility] Transportation Arranged Answers: Other Notes: w/c transport arranged by [facility] Transport will Pick (Date 09/16/2018 04:00 PM & Time) Faxed Final Orders Answers: Yes Notes: to [facility] Agency/Facility Transfer Answers: Yes Notes: to [facility] Report Printed & Faxed to Receiving Agency Family Notified Answers: Yes Notes: Jacquelyn Steele in the room Discharge Comments Notes: 09/16/2018 Case Management Note Faxed final orders to [facility] in [place]. RN called report. [facility] arranged wheelchair transport. Transitional Care RN will follow pt after d/c. Jacquelyn Steele in the room. Notified of discharge. Jacquelyn Sahu can be reached at [phone] Case Management d/c poc: [facility] in [place]. Date Signed: 09/16/2018 03:24 PM Electronically Signed By:Jayne Rojas RN Intervention Information
--- NOTE | 2018-09-16 16:44 | PDDCSUM ---
Discharge Summary Discharge Summary: DATE OF ADMISSION: 09/12/18 DATE OF DISCHARGE: 09/16/18 DISPOSITION: Transferred to [facility] rehab in [place] PRINCIPAL DISCHARGE DIAGNOSES: 1. Left main coronary artery disease treated with coronary artery bypass grafting x 2 2. Acute expected blood loss anemia FOLLOW UP APPOINTMENTS: 1. CV surgery: with Dr Monaco at [facility] on 09/23 at 11:45 am. 2. Cardiology: with Roseline Rowley PA-C at [facility] within 4-6 weeks. Appointment to be established during surgical visit. FOLLOW UP TESTIN. CXR prior to surgical appointment. ALLERGIES/SENSITIVITIES: Doxycycline causing itchiness, sulfa causing hives, tetracycline causing unrecalled reaction DISCHARGE MEDICATIONS: see medical administration record for full details Essentially as on admission (baby ASA, metoprolol tartrate, Nitrostat, fish oil , MVI, Synthroid, vit B12) with the following adjustments: 1. Hold Cozaar 50 mg daily NEW prescriptions: 1. Lipitor 20 mg daily 2. [place] 5/325 one tab q4h prn incisional discomfort CONSULTANTS: CV surgery (Carlos Enrique) PROCEDURES/IMAGIN/2 ([facility]): Left heart catheterization with selective coronary angiography and left ventriculogram. Access RCFA. Findings: Rt dominant coronary system, 70 % distal LM stenosis, 90% prox LAD stenosis, 90% prox LCX stenosis, LVEDP 20, LVEF 65-70%. 09/12 ([facility]): Transthoracic echocardiogram: Nl BiV size and systolic fx, no RWMA, LVEF 68%, mild MR, mild TR, RVSP 24 09/12 Carotid ultrasound: Mild left and moderate right carotid bulb plaquing. 50- 70% KYARA stenosis. 09/13 ([facility]): Urgent coronary artery bypass grafting x 2 (ROUSSEAU-LAD, SV-RI). Takedown left internal mammary artery. Endoscopic vein harvest left thigh. HISTORY OF PRESENT ILLNESS: 73 yo female with multiple cardiac risk factors and recent onset exertional anginal symptoms admitted for elective left heart catheterization. PERTINENT PAST MEDICAL HISTORY: HTN, dyslipidemia, obesity, hypothyroidism, pernicious anemia ABBREVIATED HOSPITAL COURSE BY ACTIVE PROBLEM LIST: 1. Sx severe CAD with high grade stenosis of distal LM - Preserved ventricular and valvular fx. Revascularized with CABG. Stable early postop course. Extubated without incident. No pressor support. No dysrhythmias. No sig fluid overload. Adequate autodiuresis. Secondary prevention w baby ASA, BB and statin. 2. Acute expected blood loss anemia - Stable. No transfusions required. 3. Moderate carotid artery disease - By ultrasound. KYARA > LICA. No apparent postop deficits. Secondary prevention as per CAD. Surveillance per cards.
== END 2018-09-16 16:18 | DRG 234 ==
LOC: FCATH 12:08 → F2W 15:22 → F2N 09-13 08:15 → F2W 09-14 14:50
PROVIDERS: ADMIT Thoracic Surgery (Cardiothoracic Vascular Surgery); ATTEND Thoracic Surgery (Cardiothoracic Vascular Surgery)
DX: I25.110 Atherosclerotic heart disease of native coronary artery with unstable angina pectoris (principal); D62 Acute posthemorrhagic anemia; I65.23 Occlusion and stenosis of bilateral carotid arteries; E78.00 Pure hypercholesterolemia, unspecified; E03.9 Hypothyroidism, unspecified; E66.09 Other obesity due to excess calories; Z68.25 Body mass index [BMI] 25.0-25.9, adult; D51.0 Vitamin B12 deficiency anemia due to intrinsic factor deficiency
CPT/HCPCS: 82435-PO; 82565-PO; 82947-PO; 83605-PO; 84132-PO; 84295-PO; 84520-PO; 85014-PO; 97116-GP; 97162-GP; 97165-GO; 97530-GO; 97535-GO; C1760; C1768; G8978-GP-CJ; G8979-GP-CI; G8987-GO-CK; G8988-GO-CI; J0153; J0282; J0690; J1100; J1170; J1265; J1644; J1815; J2001; J2150; J2250; J2260; J2270; J2370; J2405; J2440; J2704; J2720; J2930; J3010; J3475; J3480; P9041; Q9967

== ENCOUNTER → 2018-09-23 | Outpatient (CLI) | payer OTHER | LOC: FIMAGING 10:47 | PROVIDERS: ATTEND Thoracic Surgery (Cardiothoracic Vascular Surgery) | DX: Z95.1 Presence of aortocoronary bypass graft (principal); J90 Pleural effusion, not elsewhere classified ==

== ENCOUNTER 2018-10-19 05:36 | Observation (INO) | payer OTHER ==
--- NOTE | 2018-10-19 05:41 | EDPHY ---
H & P Time Seen by Provider: 10/19/18 05:41 HPI/ROS: HPI CHIEF COMPLAINT: Palpitations, diaphoresis HISTORY OF PRESENT ILLNESS: Very pleasant 73-year-old female presents to the emergency room with palpitations. She states this woke from sleep. [place] her heart very irregular very fast. She was somewhat diaphoretic and felt flushed and hot. No nausea vomiting. No chest pain. No shortness of breath. No recent illness denies fever, denies pleuritic pain. Recently did have a CABG. Severe vessel coronary artery disease. Did not have any pain or shortness of breath during this event. States palpitation lasting 10 min. Past Medical History: Coronary artery severe multi-vessel Past Surgical History: CABG in September Social History: Denies drugs alcohol tobacco Family History: Noncontributory ROS REVIEW OF SYSTEMS: 10 Systems were reviewed and negative with the exception of the elements mentioned in the history of present illness. Exam Constitutional appears well nontoxic no acute distress, triage nursing summary reviewed, vital signs reviewed, awake/alert. Vital signs stable noted at triage. Eyes normal conjunctivae and sclera, EOMI, PERRLA. HENT normal inspection, atraumatic, moist mucus membranes, no epistaxis, neck supple/ no meningismus, no raccoon eyes. Respiratory clear to auscultation bilaterally, normal breath sounds, no respiratory distress, no wheezing. Cardiovascular rate normal, regular rhythm, no murmur, no edema, distal pulses normal. Gastrointestinal soft, non-tender, no rebound, no guarding, normal bowel sounds, no distension, no pulsatile mass. Genitourinary no CVA tenderness. Musculoskeletal no midline vertebral tenderness, full range of motion, no calf swelling, no tenderness of extremities, no meningismus, good pulses, neurovascularly intact. Skin pink, warm, & dry, no rash, skin atraumatic. Neurologic awake, alert and oriented x 3, AAOx3, moves all 4 extremities equally, motor intact, sensory intact, CN II-XII intact, normal cerebellar, normal vision, normal speech. Psychiatric normal mood/affect. Heme/Lymph/Immune no lymphadenopathy. Differential Diagnosis: Includes but is not limited to in a particular order cardiac arrhythmia, SVT, AFib, V-tach, VFib, electrolyte disturbance, heart failure, mi Medical Decision Making: Plan for this patient IV establishment, chest x-ray, basic electrolytes, learning disabled teacher, EKG, troponin, and re-evaluate. BNP. Re-evaluation: EKG interpretation by me on record in [facility] system. Impression time of EKG 6:14 a.m., sinus rhythm, left anterior fascicular block present. T-wave abnormalities V1 V2 V4 V5 new compared to old EKG. But no otherwise acute ischemia The patient's chest x-ray reviewed. I do not appreciate acute cardiopulmonary disease. Patient's troponin negative. BNP slightly elevated. Chest x-ray reveals no acute cardiopulmonary disease. Plan plan for patient will admit to the hospital for observation today given palpitations, recent CABG. Patient did have an episode of nausea. However feeling better at this time. Plan for admission observation today. Spoke with the hospitalist service. Dr. Aguilar will admit. The patient agrees for admission. Source: Patient, EMS - Medical/Surgical History Hx Asthma: No Hx Chronic Respiratory Disease: No Hx Diabetes: No Hx Cardiac Disease: No Hx Renal Disease: No Hx Cirrhosis: No Hx Alcoholism: No Hx HIV/AIDS: No Hx Splenectomy or Spleen Trauma: No Other PMH: hypothyroid - Social History Smoking Status: Never smoked Constitutional: Initial Vital Signs Temperature (C) 36.7 C 10/19/18 05:32 Heart Rate 78 10/19/18 05:32 Respiratory Rate 18 10/19/18 05:32 Blood Pressure 163/88 H 10/19/18 05:32 O2 Sat (%) 97 10/19/18 05:32 Allergies/Adverse Reactions: doxycycline Allergy (Intermediate, Verified 10/19/18 06:31) Itching Sulfa (Sulfonamide Antibiotics) Allergy (Intermediate, Verified 10/19/18 06:31) Hives sulfabenzamide Allergy (Verified 10/19/18 06:31) sulfacetamide Allergy (Verified 10/19/18 06:31) sulfathiazole Allergy (Verified 10/19/18 06:31) Tetracyclines Allergy (Verified 10/19/18 06:31) Home Medications: Medication Instructions Recorded Aspirin [Aspirin 81mg (*)] 81 mg PO DAILY 09/11/18 Cyanocobalamin [Vitamin B12 1,000 mcg IM Q30D 09/11/18 1000MCG/ML (*)] Herbals/Supplements -Info Only 1 ea PO DAILY 11/01/18 Metoprolol Tartrate [Lopressor 25 12.5 mg PO BID 09/11/18 mg (*)] Multivitamins [Multivitamin (*)] 1 each PO DAILY 09/11/18 Nitroglycerin [Nitrostat 0.4 mg 0.4 mg SL Q5M PRN 09/11/18 (*)] [place]-3 Fatty Acids [Fish Oil 1000 1,000 mg PO DAILY 09/11/18 mg (*)] Acetaminophen [Tylenol 325mg (*)] 325 - 650 mg PO Q4HRS PRN tab 09/16/18 Polyethylene Glycol 3350 [Miralax 17 gm PO DAILY PRN 10/19/18 17 gm (*)] Atorvastatin Calcium [Lipitor 40 40 mg PO DAILY #30 tab 10/20/18 mg (*)] Levothyroxine [Synthroid 150 mcg 150 mcg PO DAILY06 #30 tab 10/20/18 (*)] Medical Decision Making - Data Points Laboratory Results: Laboratory Results 10/19/18 06:00 10/19/18 06:00 Medications Given: Discontinued Medications Acetaminophen (Tylenol) 650 mg PO Q4 PRN PRN Reason: Pain, Mild/Fever, Can Take PO Stop: 04/17/19 09:22 Last Admin: 10/19/18 20:45 Dose: 650 mg Aspirin (Aspirin) 81 mg PO DAILY [facility] Stop: 04/17/19 09:29 Last Admin: 10/20/18 09:15 Dose: 81 mg Atorvastatin Calcium (Lipitor) 20 mg PO DAILY [facility] Stop: 04/17/19 09:29 Last Admin: 10/20/18 09:15 Dose: 20 mg Enoxaparin Sodium (Lovenox) 40 mg SC DAILY [facility] Stop: 04/18/19 08:59 Last Admin: 10/20/18 09:15 Dose: 40 mg Levothyroxine Sodium (Synthroid) 125 mcg PO DAILY06 [facility] Stop: 04/17/19 09:29 Last Admin: 10/19/18 12:48 Dose: 125 mcg Levothyroxine Sodium (Synthroid) 150 mcg PO DAILY06 [facility] Stop: 04/18/19 05:59 Last Admin: 10/20/18 05:14 Dose: 150 mcg Metoprolol Tartrate (Lopressor) 12.5 mg PO BID [facility] Stop: 04/17/19 09:29 Last Admin: 10/20/18 09:15 Dose: 12.5 mg Point of Care Test Results: Chemistry 10/19/18 06:05 POC Troponin I 0.01 ng/mL ng/mL (0.00-0.08) Departure - Departure Disposition: [facility] Inpatient Acute Clinical Impression: S/P CABG x 2, Palpitations Condition: Good
[2018-10-19 06:09] LABS: PLATELET COUNT 290 10^3/uL (150-400)
[2018-10-19 06:17] LABS: INR 1.11 (0.83-1.16); PROTIME(PATIENT) 14.5 SEC (12.0-15.0)
[2018-10-19] MEDS ORDERED: ONDANSETRON 4 MG/2 ML VIAL IVP PRN (09:23)
[2018-10-19] MEDS ORDERED: ACETAMINOPHEN 325 MG TAB PO PRN (09:23)
[2018-10-19] MEDS ORDERED: LEVOTHYROXINE 125 MCG TAB PO SCH ×2 (09:30→13:30)
[2018-10-19] MEDS: ATORVASTATIN CALCIUM 20 MG TAB PO SCH (10:27)
[2018-10-19] MEDS: ASPIRIN 81 MG CHEWABLE TAB PO SCH (10:28)
[2018-10-19] MEDS: METOPROLOL TARTRATE 25 MG TAB PO SCH ×2 (10:29→20:46)
--- NOTE | 2018-10-19 12:11 | CPEKG ---
Test Reason : OPEN Blood Pressure : / mmHG Vent. Rate : 061 BPM Atrial Rate : 061 BPM P-R Int : 176 ms QRS Dur : 106 ms QT Int : 407 ms P-R-T Axes : -19 -47 115 degrees QTc Int : 410 ms Sinus rhythm Incomplete RBBB and LAFB Probable left ventricular hypertrophy Anterior Q waves, possibly due to LVH Nonspecific T abnormalities, lateral leads Confirmed by García Newell ([id number]) on 10/19/2018 12:11:07 PM Referred By: Confirmed By:García Newell
[2018-10-19] MEDS ORDERED: IOPAMIDOL (ISOVUE 370) 100 ML BTL IV ONE (14:48)
--- NOTE | 2018-10-19 14:50 | GHP ---
DATE OF ADMISSION: 10/19/2018 CHIEF COMPLAINT: Palpitations. HISTORY OF PRESENT ILLNESS: The patient is a 73-year-old female, who had a CABG x2 on September 13, pe rformed by Dr. Vitale. She was found to have left main disease with angina, and was brought to [facility] after elective cardiac catheterization revealed obstruction. After surgery she did well and went to jail facility [facility] 2 [facility] for rehabilitation. While at rehab she developed a stomach f charles, and at 1 point threw up in her sleep aspirating some vomit and had a little bit of a persistent c ough for some time. That has since resolved. Her chest x-ray was negative. She finally discharged from jail, and is now doing outpatient cardiac rehab. Her 1st cardiac rehab was on [facility] er 5. She describes it as very strenuous and felt like she over did it that day, and the next day fe lt quite poor and developed a right-sided chest wall pain, which we attributed to a muscle. She has not had any recurrence of that chest pain since the . According to her family, during her cardiac rehab on October 15, she also developed a left-sided facial droop that has mostly resolved; although , they are unclear if it has gone all the way back to normal. During screening pre-CABG she was foun d have a 70% right carotid stenosis. Followup is scheduled, and they have a CT angiogram scheduled f or later this week. Family also feels there has been some cognitive decline since her surgery. Early this morning she was awoken from sleep by severe palpitations. She felt like her heart was meenu nding her ribcage from the inside. It felt irregular and fast, and the family obtained their home pu lse oximeter, showed the pulse ranging anywhere from 53 to 105; although, oxygen saturation seemed ok ay. She became very diaphoretic. She never had any chest pain. 911 was called. The palpitations s topped before EMS arrived. She denies any shortness of breath. PAST MEDICAL HISTORY: 1. Coronary artery disease, status post CABG September 13 for left main disease. Two-vessel CABG perf ormed by Dr. Vitale. 2. 70% right carotid stenosis. 3. Hyperlipidemia. 4. Pernicious anemia. MEDICATIONS: Please see computer record for full detailed list. ALLERGIES: Doxycycline and sulfa. SOCIAL HISTORY: No smoking. No alcohol. She lives with her 2 daughters. They have a house in [facility] that is contaminated with mold and so, they are currently staying with a friend in [facility]. REVIEW OF SYSTEMS: Complete review of systems obtained. Review of systems negative on constitutiona l, HEENT, GI, pulmonary, cardiovascular, hematology, skin, muscular, endocrine, psych, except for as in HPI. FAMILY HISTORY: Reviewed and noncontributory to presenting complaint. PHYSICAL EXAMINATION: GENERAL: Well-developed, well-nourished female, in no acute distress. VITAL SIGNS: Temperature is 36.7, pulse 72, blood pressure 163/88, saturating 96% on room air. EYES: On examination normal conjunctivae. Pupils react to light. ENT: Normal ears and nose. Hearing intact . Normal teeth. Oropharynx moist. NECK: Trachea midline. No thyromegaly. CHEST: Normal effort. LUNGS: Clear to auscultation bilaterally. CARDIOVASCULAR: Regular rhythm. No murmur. No lower extremity edema. ABDOMEN: Soft, nontender. No hepatosplenomegaly. SKIN: Warm, dry, intact, witho ut rash. MUSCULOSKELETAL: No cyanosis or clubbing. Strength 5/5 upper and lower extremities. NEUR OLOGIC: Examination cranial nerves there is a slight persistent left facial droop, and her tongue de viates slightly to the right. Normal sensation to light touch. PSYCHIATRIC: Alert and oriented x3. Normal affect. Normal judgment. Normal memory. DATA REVIEWED: Labs: White count 4.5, hematocrit 36.5, platelets 290, sodium 142, potassium 4.0, ch loride 107, bicarb 25, BUN 13, creatinine 0.7, glucose 100. INR is 1.11. LFTs are negative. Tropon ins negative. BNP is 919. EKG viewed by me, my personal interpretation is T-wave inversions in V1 and V2. These do appear new compared with the last EKG we have on file, which appears to be prior to surgery. Chest x-ray is negative. Medical records reviewed. I reviewed all medical records including CT surgery notes regarding recent CABG. ASSESSMENT/PLAN: 1. Palpitations. She is a little over 30 days post coronary artery bypass graft. There are some po ssible new anterior T-wave inversions. Although, our last EKG was pre-surgery. Her troponins are ne gative. We will watch her on telemetry. I have consulted Cardiology and discussed with Dr. Gomez. We will check an echocardiogram. 2. Transient ischemic attack versus stroke. She had symptoms onset 3 days ago of a left-sided facia l droop, which appears to be persisting to a mild degree at this time. She may have had a small stro ke. We will check an MRI of her brain. We will check a CT angiogram of the head and neck, to follow up the known right-sided carotid stenosis. Echocardiogram as above. We will continue her on aspiri n and watch for evidence of atrial fibrillation on her monitor. We will check a lipid panel. Neurol celso can consult in the morning. 3. Coronary artery disease, status post recent coronary artery bypass graft. She is on medical josue gement with aspirin, Lipitor, and beta danial. 4. Elevated TSH. TSH is 10.9. We will increase her Synthroid dose. CODE STATUS: Full. ADMISSION STATUS: We will admit to observation. We will re-evaluate tomorrow regarding ongoing need for hospitalization. DVT PROPHYLAXIS: She is high risk. We will place her on subcutaneous Lovenox. /[id number]/MODL
--- NOTE | 2018-10-19 16:47 | PDCARPN ---
Cardiology Progress Note Assessment/Plan: 73 year old female status post 2-vessel CABG on September 12 presents with a forceful and possibly irregular heartbeat last night. 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 She does not think it was necessarily rapid. Her daughter, a nurse, checked her pulse and noted some degree of irregularity. She came to the emergency room this morning. There her ECG demonstrated normal sinus rhythm. Her initial presentation was in early September with new-onset angina. Cardiac catheterization demonstrated critical disease involving the distal left main/ ostial left anterior descending/ostial circumflex. An echocardiogram demonstrated normal left ventricular systolic function and no valvular heart disease. On September 13, she underwent two-vessel CABG consisting of ROUSSEAU to the LAD and an SVG to the circumflex. She did not experience any postoperative atrial fibrillation and was discharged uneventfully on September 16. - She will be monitored on tele overnight. Obviously, the most concerning and most likely potential arrhythmia in this setting is paroxysmal atrial fibrillation. However, she certainly could have any one of a number of other arrhythmias but should not be at risk for a life-threatening rhythm disturbance.. - She will continue her low dose metoprolol.. - Pending her clinical course overnight, she may be able to be discharged home with a plan for longer term outpatient monitoring. 10/19/18 16:46 Subjective: Palpitations last night. Reviewed/Discussed With: family Objective: Vital Signs (8 Hrs) Temp Pulse Resp BP Pulse Ox 10/19/18 15:37 36.6 C 62 18 140/57 H 95 10/19/18 12:44 36.4 C 56 L 18 125/59 H 95 10/19/18 09:42 36.4 C 64 18 141/57 H 97 10/19/18 09:20 36.5 C 71 16 122/86 H 95 Intake/Output (24 Hrs) 10/18/18 10/19/18 10/20/18 05:59 05:59 05:59 Other: Weight 63.684 kg Result Diagrams: 10/19/18 06:00 10/19/18 06:00 Cardiac Labs: Cardiac Lab Results (72 Hrs) 10/19/18 11:49 Troponin I < 0.012 - Physical Exam Constitutional: WDWN, healthy appearing, no apparent distress Eyes: anicteric sclera Ears, Nose, Mouth, Throat: moist mucous membranes Cardiovascular: regular rate and rhythm, no murmurs, no rubs, no gallops Respiratory: clear to auscultate bilat Gastrointestinal: normoactive bowel sounds, no tenderness, no masses Skin: no edema Neurologic: AAOx3 Psychiatric: not anxious ICD10 Worksheet Patient Problems: Problems Problem Status Onset Palpitations Acute S/P CABG x 2 Acute ~09/13/18 Acute blood loss anemia Acute CAD (coronary artery disease), [place] coronary artery Acute Carotid artery disease Acute chronic disease mgmt/transitional care Acute
[2018-10-20] MEDS ORDERED: LEVOTHYROXINE 150 MCG TAB PO SCH (06:00)
[2018-10-20] MEDS ORDERED: ENOXAPARIN 40 MG/0.4 ML SYR SC SCH (09:00)
[2018-10-20] MEDS: ATORVASTATIN CALCIUM 20 MG TAB PO SCH (09:15)
[2018-10-20] MEDS: METOPROLOL TARTRATE 25 MG TAB PO SCH (09:15)
[2018-10-20] MEDS: ASPIRIN 81 MG CHEWABLE TAB PO SCH (09:15)
--- NOTE | 2018-10-20 10:19 | GCON ---
NEUROLOGY CONSULT DATE OF CONSULTATION: 10/20/2018 CHIEF COMPLAINT: Query transient facial weakness. HISTORY OF PRESENT ILLNESS: The patient is a very pleasant 73-year-old lady with an extensive cardiac history. She had a 2-vessel CABG on September [address] Vitale. Postoperatively, she did very well and went to a longterm facility for 2 weeks. She did develop some flu symptoms at rehabilitation. She came into the ER last night due to severe palpitations. She did not present with any neurologic symptoms. In the course of taking her history, the patient and her family stated to the hospital team that there was some left- sided facial droop that was on and off or resolved. This is what initiated neurology consultation. Interestingly, when I spoke with the patient this morning, they were saying it was on the right side of the face, and overall, the history is not entirely clear. 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 In her mind, it is related to some poorly fit dentures and chewing on one side of her face that has been associated with the subtle change. Indeed, she thinks it has been there for months and can seem more prominent on days she is tired, but no other symptoms. No right arm or leg symptoms. No language symptoms. No dysarthria. She had a preoperative carotid ultrasound prior to the CABG that showed a possible right carotid artery plaquing stenosis between 50% and 70%. She was scheduled to get a CTA this week, and we did this as an inpatient. Interestingly, the CTA of the neck was negative, without any significant flow limitation, stenosis or dissection. CT of the head was negative. MRI brain was also done, which shows no acute stroke. REVIEW OF SYSTEMS: Ten-point review of systems was done, only pertinent to the HPI. For past medical history, social history, family history, home medications, and allergies, see Dr. Aguilar's note. PHYSICAL EXAM: VITAL SIGNS: Blood pressure 120/60, temperature 36.6, heart rate 60s. GENERAL: Awake and alert, no acute distress, very pleasant. NEUROLOGIC: Higher mental functions, lucid, no aphasia. Cranial nerve exam: Normal 2 through 7, 11 and 12. There is no facial weakness on my exam. Motor exam shows normal strength and tone throughout. Sensory exam normal to light touch throughout. Coordination is normal in upper and lower extremities. IMPRESSION/PLAN: 1. Transient neurologic symptoms, resolved. The patient's right-sided facial symptoms are not entirely clear. She did not present with any other symptoms to suggest an acute neurovascular syndrome. We discussed that facial asymmetries can be normal. I do not detect any neurologic exam abnormalities now. MRI brain and CT of the head and neck were fortunately negative. She was counseled at length. She was happy to hear this. She should continue antiplatelet therapy, statin therapy, and close followup with Cardiology. Certainly, 30-day ECG monitoring could be considered as an outpatient. No further recommendations. We will sign off and follow up as needed. Please do not hesitate to call if there are any questions or changes in neurologic status with this very pleasant patient. Seventy total minutes floor time, over 50% in direct counseling and coordination of care with this patient today. /[id number]/MODL MTDD
[2018-10-20 12:07] VITALS: BP 130/59
--- NOTE | 2018-10-20 12:08 | ASMTCMCOM ---
CM Note CM Note Notes: Patient admitted w c/o heart palpitations. She had a CABG x2 on 09/13 and was discharged to [facility] on 09/16. She was there for two weeks and then discharged to her daughters home. She has been going to outpatient cardiac rehab since then. Neurology and Cardiology have both been ordered to see her. Therapies have been ordered. Case Management will follow for discharge planning. Date Signed: 10/20/2018 12:07 PM Electronically Signed By:Nadege De Leon RN
--- NOTE | 2018-10-20 13:06 | ECHO ---
[email or web address] [address] [address] Main: [phone] Fax: Transthoracic Echocardiogram Name: ANIKET CRUZ MR#: [id number] Study Date: 10/20/2018 Study Time: 07:38 AM Date of : 1945 Age: 73 year(s) Height: 165.1 cm (65 in.) Weight: 63.5 kg (140 lb.) BSA: 1.7 m2 Gender: Female Examination: Echo Indication: CVA/s/p CABG 09/28 Image Quality: Contrast: Requested by: Geni Aguilar BP: 140 mmHg/70 mmHg Heart Rate: Rhythm: Indication: CVA/s/p CABG 09/28 Procedure Staff Credit Assessment Analyst: Shannan Warren RDCS Reading Physician: Tomás Malik MD Requesting Provider: Conclusions: Normal size left ventricle. Mild concentric LV hypertrophy. The ejection fraction is estimated to be 65-70 %. Grade 1 diastolic dysfunction (abnormal relaxation). Elevated left ventricular filling pressures.. Normal RV function. The left atrium is mildly dilated. An agitated saline study was performed and was negative for intracardiac shunting. The right atrium is normal in size. The pulmonary artery pressure is normal. Mild pulmonic valve regurgitation is noted. No pericardial effusion. No cardiac source of CVA identified Measurements: Chambers Valvular Assessment AV/MV Valvular Assessment TV/PV Normal Normal Normal Name Value Range Name Value Range Name Value Range Ao Sara (MM): 3.4 cm (2.2 cm-3.7 AV Vmax: 1.20 m/s (1 m/s-1.7 TR Vmax: 2.20 mm/s ( - ) cm) m/s) TR PGmax: 19 mmHg ( - ) IVSd (2D): 1.2 cm (0.6 cm-1.1 AV meanP mmHg ( - ) syst. PAP: 24 mmHg ( - ) cm) MV E Vmax: 0.58 m/s ( - ) LVDd (2D): 4.7 cm (3.9 cm-5.3 MV A Vmax: 0.53 m/s ( - ) cm) MV E/A: 1.09 ( - ) LVDs (2D): 2.8 cm (2.1 cm-4 cm) LVPWd (2D): 1.0 cm ( - ) LVEF (MOD4): 67 % (>=55 %) EF Range: 65-70 % Continued Measurements: Patient: ANIKET RCUZ Study Date: 10/20/2018 Page 1 of 2 07:38 AM Chambers Valvular Assessment AV/MV Valvular Assessment TV/PV Name Value Name Value Name Value LADs: 3.4 cm MV E' Septal: 0.04 m/s CVP (est.): 5 mmHg LADs Lon.0 cm MV E/E' Septal: 13.90 LA Area: 27.2 cm2 MV E/E' Lateral: 8.60 Additional Vessels Name Value Ao Ascendin.2 cm Findings: Left Ventricle: Normal size left ventricle. Mild concentric LV hypertrophy. Global hypercontractility of the left ventricle. The ejection fraction is estimated to be 65-70 %. There is paradoxic septal motion suggestive of bundle branch block, paced cardiac rhythm, or prior cardiac surgery. Grade 1 diastolic dysfunction (abnormal relaxation). Elevated left ventricular filling pressures.. Right Ventricle: Normal size right ventricle. Normal RV function. Left Atrium: The left atrium is mildly dilated. An agitated saline study was performed and was negative for intracardiac shunting. Right Atrium: The right atrium is normal in size. Mitral Valve: Mild mitral annular calcification. Moderate mitral annular calcification. Trivial mitral valve regurgitation. Aortic Valve: The aortic valve is normal in appearance and function. The aortic valve is tri-leaflet. There is no aortic valve regurgitation. No aortic valve stenosis is present. Tricuspid Valve: The tricuspid valve is normal in appearance and function. Mild tricuspid regurgitation is present. The pulmonary artery pressure is normal. Pulmonic Valve: The pulmonic valve is normal in appearance and function. Mild pulmonic valve regurgitation is noted. Aorta: The aorta is normal. Pericardium: No pericardial effusion. (No Signature Object) Patient: ANIKET CRUZ Study Date: 10/20/2018 Page 2 of 2 07:38 AM [id number]
--- NOTE | 2018-10-20 13:49 | PDCARPN ---
Cardiology Progress Note Chief Complaint: Admit for irregular heart beat. Assessment/Plan: Assessment: 73 year old female status post 2-vessel CABG on September 12 , yesterday noted an irregular heartbeat. Her daughter who is a nurse, checked her pulse and noted some degree of irregularity. Her daughter took her to the ER and her HR was regular with EKG showing NSR. In September 2018, Cardiac catheterization demonstrated critical disease involving the distal left main/ostial left anterior descending/ostial circumflex. On September 13, she underwent two-vessel CABG consisting of ROUSSEAU to the LAD and an SVG to the circumflex. She had no postoperative atrial fibrillation and was discharged uneventfully on September 16. She was monitored on Telemetry over-night showing only occasional PVC's. NO atrial Fibrillation. Plan: Continue on Metoprolol low dose. Consider 30 day Telemetry monitoring if recurrent concerns. OK for Discharge from cardiac perspective. 10/20/18 13:41 Subjective: I feel good today. Reviewed/Discussed With: hospitalist, multidisciplinary team Time Spent with Patient: greater than 25 minutes Time Spent with Patient: Greater than 25 minutes spent on this patients care, greater than 50% of time spent counseling, educating, and coordinating care regarding the above mentioned plan. Objective: Vital Signs (8 Hrs) Temp Pulse Resp BP Pulse Ox 10/20/18 12:00 36.3 C 67 20 130/59 H 99 10/20/18 07:29 36.6 C 64 18 140/70 H 93 Intake/Output (24 Hrs) 10/19/18 10/20/18 10/21/18 05:59 05:59 05:59 Intake Total 1800 Balance 1800 Intake: Oral (ml) 1800 Other: Weight 63.684 kg Number of Voids Toilet 2 Result Diagrams: 10/19/18 06:00 10/19/18 06:00 Cardiac Labs: Cardiac Lab Results (72 Hrs) 10/19/18 10/19/18 17:47 11:49 Troponin I < 0.012 < 0.012 - Physical Exam Constitutional: no apparent distress Cardiovascular: regular rate and rhythm, no murmurs, no rubs, no gallops Respiratory: clear to auscultate bilat, no crackles, no wheezes Skin: warm Neurologic: AAOx3 Psychiatric: cooperative, interactive ICD10 Worksheet Patient Problems: Problems Problem Status Onset Palpitations Acute chronic disease mgmt/transitional care Acute Acute blood loss anemia Acute CAD (coronary artery disease), [place] coronary artery Acute S/P CABG x 2 Acute ~09/13/18 Carotid artery disease Acute
--- NOTE | 2018-10-20 16:14 | CPEKG ---
Test Reason : OPEN Blood Pressure : / mmHG Vent. Rate : 077 BPM Atrial Rate : 077 BPM P-R Int : 172 ms QRS Dur : 107 ms QT Int : 479 ms P-R-T Axes : 010 -64 150 degrees QTc Int : 543 ms Sinus rhythm Left anterior fascicular block Probable left ventricular hypertrophy Anterior Q waves, possibly due to LVH Abnrm T, consider ischemia, anterolateral lds Prolonged QT interval Confirmed by Kole Garcia ([id number]) on 10/20/2018 4:14:09 PM Referred By: Confirmed By:Kole Garcia
--- NOTE | 2018-10-20 18:53 | GDS ---
DISCHARGE DIAGNOSES: 1. Palpitations. 2. Transient ischemic attack. 3. Coronary artery disease, status post recent coronary artery bypass graft. 4. Elevated thyroid stimulating hormone. HISTORY: The patient is a 73-year-old female, status post CABG x2 on September 13, performed by Dr. Darinel Krishnamurthy. She was found to have left main disease, had 2-vessel CABG, and she did very well. She re-pre sented to the hospital with acute onset of severe palpitations, feeling like her heart is going to be at out of her chest. She did not have any chest pain. Cardiology did see her in consultation. Ther e were some subtle EKG changes that Cardiology did not think were significant. Her echocardiogram lo oked good. Her telemetry monitoring continued to show normal sinus rhythm. They are recommending ou tpatient 30-day event monitoring. Patient also reported transient facial drooping just a few days ago. Carotid ultrasound screening pr ior to surgery revealed a 70% right carotid stenosis, and she did have outpatient workup pending for this. Given the recent event, we did do an inpatient CT angiogram of the head and neck, which was ne gative for any carotid stenosis. Her MRI of her brain was negative. Neurology saw her in consultati on and thinks she may have had a TIA, not clear. Aspirin and good lipid management are recommended. Her LDL is 76, so I will increase her Lipitor to 40 mg p.o. daily. TSH is 10.9, so I will also incre ase her Synthroid at discharge. DISCHARGE MEDICATIONS: Please see computerized record for full detailed list. New medications: Lip itor increased to 40 mg p.o. daily. Levothyroxine increased to 150 mcg p.o. daily. ADDITIONAL DISCHARGE INSTRUCTIONS: 1. Follow up with Cardiology for a 30-day event monitor. 2. Repeat TSH in 6 weeks. Patient was seen and examined by me on the day of discharge. /[id number]/MODL
== END 2018-10-20 16:57 | disposition home or self-care (01) ==
LOC: EDUNIT# → F2W 09:30
PROVIDERS: ADMIT Internal Medicine; ATTEND Internal Medicine
DX: R00.2 Palpitations (principal); G45.9 Transient cerebral ischemic attack, unspecified; I25.10 Atherosclerotic heart disease of native coronary artery without angina pectoris; R94.6 Abnormal results of thyroid function studies
CPT/HCPCS: 70496; 70498; 70551; 71045; 92523; 93005; 93306; 96372; 97161; 97166; 99285; G0378; G8978; G8979; G8980; G8987; G8988; G8989; G8996; G8997; J1650; Q9967; 84484-PO

== ENCOUNTER → 2018-12-27 | Outpatient (CLI) | payer OTHER | LOC: SBRMNEURO 20:00 | PROVIDERS: ATTEND Psychiatry & Neurology Sleep Medicine | DX: G47.33 Obstructive sleep apnea (adult) (pediatric) (principal); G47.61 Periodic limb movement disorder ==

== ENCOUNTER → 2019-05-04 | Outpatient (CLI) | payer OTHER | LOC: BHFA 14:00 ==